=== PATIENT | female | born 1965 | race Caucasian/White ===

== ENCOUNTER 2018-08-12 03:28 | Emergency (ER) | payer BC ==
--- NOTE | 2018-08-12 04:31 | EDM.PDOC ---
ED HPI GENERAL MEDICAL PROBLEM - General Chief Complaint: General Stated Complaint: LEFT SIDE PAIN Time Seen by Provider: 08/12/18 03:58 Source of Information: Reports: Patient, RN Notes Reviewed - History of Present Illness INITIAL COMMENTS - FREE TEXT/NARRATIVE: 52-year-old female comes in with left lower lateral with anterior chest discomfort. She had quite severe bronchitis a few weeks ago. She had onset of some left lower chest wall pain a couple of weeks ago, seemed to be getting better and then started getting a lot worse over the last 3-5 days. She has quite severe pain with coughing and any type of motion. Her cough is improved, still mildly present but mostly nonproductive. Recent fever or chills. Other than the discomfort with very deep breathing she does not feel short of breath. Left Thoracic Pain Score (Numeric/FACES): 3 - Related Data Allergies Allergy/AdvReac Type Severity Reaction Status Date / Time Sulfa (Sulfonamide Allergy Other Verified 08/12/18 04:08 Antibiotics) codeine AdvReac Nausea and Verified 08/12/18 04:08 Vomiting Home Meds: Home Meds Amitriptyline [Elavil] 25 mg PO BEDTIME PRN 08/12/18 [History] Hydrocodone/Acetaminophen [[place] 5-325 Tablet] 2 each PO Q6HR PRN #20 tablet 08/27 [Rx] Past Medical History - Past Surgical History HEENT Surgical History: Reports: Tonsillectomy GI Surgical History: Reports: Cholecystectomy Female Surgical History: Reports: Section, Tubal Ligation Musculoskeletal Surgical History: Reports: Carpal Tunnel Social & Family History - Family History Family Medical History: Noncontributory - Tobacco Use Smoking Status *Q: Current Every Day Smoker Years of Tobacco use: 30 Packs/Tins Daily: 1 - Caffeine Use Caffeine Use: Reports: Soda - Recreational Drug Use Recreational Drug Use: No ED ROS GENERAL - Review of Systems Review Of Systems: See Below Constitutional: Denies: Fever, Chills, Diaphoresis HEENT: Denies: Sinus Problem, Throat Pain Respiratory: Reports: Pleuritic Chest Pain, Cough. Denies: Shortness of Breath Cardiovascular: Reports: Chest Pain GI/Abdominal: Denies: Abdominal Pain, Nausea, Vomiting Musculoskeletal: Denies: Back Pain Skin: Reports: No Symptoms Neurological: Reports: No Symptoms ED EXAM, GENERAL - Physical Exam Exam: See Below General Appearance: Alert, Mild Distress Throat/Mouth: Normal Inspection Head: Atraumatic Neck: Supple Respiratory/Chest: No Respiratory Distress, Lungs Clear, Normal Breath Sounds, Other (Tender left lower lateral chest wall area). No: Rhonchi, Wheezing Cardiovascular: Regular Rate, Rhythm GI/Abdominal: Soft, Non-Tender. No: Guarding Back Exam: No: CVA Tenderness (L), CVA Tenderness (R) Extremities: Normal Inspection. No: Pedal Edema, Leg Pain Neurological: Alert, Oriented, No Motor/Sensory Deficits Skin Exam: Warm, Dry, Normal Color Course - Vital Signs Last Recorded V/S: Last Vital Signs Temp 97.9 F 08/12/18 04:04 Pulse 112 H 08/12/18 04:04 Resp 20 08/12/18 04:04 BP 145/40 H 08/12/18 04:04 Pulse Ox 98 08/12/18 04:04 - Orders/Labs/Meds Labs: Laboratory Tests 08/12/18 Range/Units 05:24 D-Dimer, Quantitative 0.25 (0.19-0.50) mg/L Meds: Medications Discontinued Medications Generic Name Dose Route Start Last Admin Trade Name Freq PRN Reason Stop Dose Admin Hydrocodone Bitart/Acetaminophen 1 tab 08/12/18 04:47 08/12/18 05:04 [place] 325-5 Mg PO 08/12/18 04:48 1 tab ONETIME ONE Administration Hydrocodone Bitart/Acetaminophen 1 tab 08/12/18 06:44 08/12/18 07:11 [place] 325-5 Mg PO 08/12/18 06:45 1 tab ONETIME ONE Administration Departure - Departure Time of Disposition: 07:15 Disposition: Home, Self-Care 01 Condition: Fair Clinical Impression: Chest wall pain - Discharge Information Prescriptions: Hydrocodone/Acetaminophen [[place] 5-325 Tablet] 2 each PO Q6HR PRN #20 tablet PRN Reason: Pain Instructions: Chest Wall Pain, [id number] Referrals: PCP,Not In Area [Primary Care Provider] - Forms: ED Department Discharge Additional Instructions: Avoid heavy lifting, alternate ice and heat as needed, alternate tylenol and ibuprofen for mild to moderate pain or hydrocodone 2 tabs q 6 hr if needed for severe pain. Follow up with your regular medical provider if not much better within 3 to 4 days.
[2018-08-12] MEDS ORDERED: Acetaminophen/HYDROcodone 325-5 MG Tab PO ONE ×2 (04:47→06:44)
--- NOTE | 2018-08-12 08:04 | CR ---
Chest and left ribs: Frontal view of the chest was obtained as well as two views of left ribs. Comparison: No prior chest or rib x-ray. Heart size and mediastinum are normal. Lungs are clear. Slight deformity is noted within a left lower rib which has the appearance of old healed fracture. No acute fracture or other abnormality is appreciated. Impression: 1. Probable old healed left lower rib fracture. Nothing acute is seen on chest x-ray or an two-view left rib exam. Diagnostic code #2
--- NOTE | 2018-08-12 08:04 | CT ---
CT abdomen and pelvis Technique: Multiple axial sections were obtained from above the dome of the diaphragm inferiorly through the pubic symphysis. Intravenous and oral contrast was not utilized. Study has been performed as a ureteral stone protocol. Comparison: No prior abdominal imaging. Findings: Right kidney shows a nonobstructing stone within the lower pole measuring 3.6 mm. No other abnormal calcifications are seen within the kidneys. No ureteral dilatation or ureteral stone is seen. No bladder calculi are identified. Visualized lung bases show nothing acute. Liver contains no focal abnormality but is generous in size and shows fatty infiltration. Surgical clips are seen from prior cholecystectomy. Spleen appears within normal limits. Adrenal glands show no nodule. Pancreas is within normal limits. Aorta shows no aneurysm. No retroperitoneal adenopathy or mesenteric abnormalities are seen. Appendix is seen which is normal in size. No pelvic mass or adenopathy is seen. No free fluid or inflammatory change is seen. Bone window settings were reviewed which show severe disc space narrowing and endplate sclerosis as well as vacuum phenomenon at L4-L5. Spondylolisthesis is seen due to bilateral spondylytic defects. Minimal superior endplate compression deformities noted at T12 and L1, age of these are indeterminate. Small fat-containing umbilical hernia is noted. Impression: 1. Small nonobstructing stone within the lower right kidney. No ureteral dilatation or ureteral calculi are seen. 2. Mild hepatomegaly and fatty infiltration within the liver. 3. Endplate concavities at T12 and L1 noted superiorly, age is indeterminate. MRI would be needed to further evaluate if clinically indicated. 4. Other incidental findings. Nothing acute is appreciated. Diagnostic code #2 I agree with preliminary report from [facility], finalized on 08/12/18, 8:12 AM Central Time
== END 2018-08-12 07:13 | disposition home or self-care (01) ==
LOC: JD.ED 03:28
DX: R07.89 Other chest pain (principal); F17.210 Nicotine dependence, cigarettes, uncomplicated; Z88.2 Allergy status to sulfonamides; Z88.5 Allergy status to narcotic agent
CPT/HCPCS: 36415; 71101; 74176; 85379; 99284; A9270; 99283